=== PATIENT | female | born 1935 | race Caucasian/White ===

== ENCOUNTER 2016-11-22 21:57 | Emergency (ER) | payer MEDICARE, BC ==
[~2016-11-22] VITALS: Ht 152.4 cm; Wt 49.9 kg
[2016-11-22 22:12] VITALS: BP 167/80
[2016-11-22] MEDS ORDERED: KETOROLAC TROMETHAMINE INJ 30 MG/ML VIAL ONE (23:17)
[2016-11-22] MEDS ORDERED: ONDANSETRON 4 MG TAB.RAPDIS ONE (23:17)
[2016-11-22] MEDS ORDERED: KETOROLAC TROMETHAMINE INJ 60 MG/2 ML VIAL IM ONE (23:30)
[2016-11-22] MEDS ORDERED: ONDANSETRON 4 MG TAB.RAPDIS SL ONE (23:30)
== END 2016-11-22 23:28 | disposition home or self-care (01) ==
LOC: ER 22:01
DX: M79.651 Pain in right thigh (principal); I10 Essential (primary) hypertension
CPT/HCPCS: 96372; 99283; A4606; J1885; Q0162; Z7610

== ENCOUNTER 2017-01-14 19:08 | Emergency (ER) | payer MEDICARE, BC | END 2017-01-14 19:51 | disposition left against medical advice (07) | LOC: ER 19:11 | DX: Z53.21 Procedure and treatment not carried out due to patient leaving prior to being seen by health care provider (principal) ==